=== PATIENT | male | born 1985 | race American Indian/Alaskan Native ===

== ENCOUNTER 2019-10-12 10:59 | Emergency (ER) | payer SELFPAY ==
--- NOTE | 2019-10-12 12:54 | Emergency Department Report ---
Blank Doc - Documentation Documentation: 34-year-old male that presents with URI symptoms. This initial assessment/diagnostic orders/clinical plan/treatment(s) is/are subject to change based on patient's health status, clinical progression and re- assessment by fellow clinical providers in the ED. Further treatment and workup at subsequent clinical providers discretion. Patient/guardians urged not to elope from the ED as their condition may be serious if not clinically assessed and managed. Initial orders include: 1- Patient sent to [facility] for further evaluation and treatment 2- cXR
--- NOTE | 2019-10-12 13:23 | XRay Report ---
CHEST 2 VIEWS INDICATION / CLINICAL INFORMATION: cough. COMPARISON: None available. FINDINGS: SUPPORT DEVICES: None. HEART / MEDIASTINUM: No significant abnormality. LUNGS / PLEURA: There is a focal parenchymal opacity in the anterolateral right upper lobe. The left lung is clear. No pneumothorax. ADDITIONAL FINDINGS: No significant additional findings. IMPRESSION: 1. Focal parenchymal opacity in the anterolateral right upper lobe most likely reflecting focal pneum onia. Signer Name: Jose G Mcdonald MD Signed: 10/12/2019 1:18 PM Workstation Name: [id number]
--- NOTE | 2019-10-12 18:20 | Emergency Department Report ---
Pediatric URI - HPI Chief Complaint: Upper Respiratory Infection Stated Complaint: FLU SYM Time Seen by Provider: 10/12/19 12:54 Duration: 3 Days Pain Location: Chest Severity: Moderate Symptoms: Yes Cough, Yes Able to Tolerate Fluids, Yes Good Urine Output, No Rhinorrhea, No Sore Throat, No Ear Pain, No Shortness of Breath, No Sick Contacts, No Listless Behavior Other History: This is a 34-year-old male who presents to the emergency room with cough and congestion for 3 days. Patient states he is taking [id number] cold and flu medication with minimal improvement of symptoms. Reports cough is productive. He denies numbness, headache, chest pain, palpitations, shortness of breath, or wheezing. ED Review of Systems ROS: Stated complaint: FLU SYM Other details as noted in HPI Constitutional: chills, fever ENT: congestion. denies: ear pain, throat pain Respiratory: cough. denies: shortness of breath, wheezing Cardiovascular: denies: chest pain, palpitations Gastrointestinal: denies: abdominal pain, nausea, diarrhea Musculoskeletal: denies: back pain, joint swelling, arthralgia Skin: denies: rash, lesions Neurological: denies: headache, weakness, paresthesias Psychiatric: denies: anxiety, depression ED Peds URI Exam - Exam General: Vital signs noted. No distress. Alert and acting appropriately. HEENT: Yes Moist Mucous Membranes, Yes Rhinorrhea (turbinates congested with clear discharge), No Pharyngeal Erythema, No Pharyngeal Exudates, No Conjuctival Injection, No Frontal Tenderness, No Maxillary Tenderness Ear: Neither TM Bulge, Neither TM Erythema, Neither EAC Pain, Neither EAC Discharge, Neither Cerumen Impaction Neck: No Adenopathy, No Supple Lungs: Yes Ronchi (right upper and middle lobes), No Good Air Exchange, No Wheezes, No Stridor, No Cough, No Labored Respirations, No Retractions, No Use of Accessory Muscles Heart: Yes Regular, No Murmur Abdomen: Yes Normal Bowel Sounds, No Tenderness, No Peritoneal Signs Skin: No Rash, No Eczema Neurologic: Alert and oriented, no deficits. Musculoskeletal: Unremarkable. ED Course Vital Signs 10/12/19 12:56 Temperature 98.9 F Pulse Rate 90 Respiratory 18 Rate Blood Pressure 102/66 O2 Sat by Pulse 98 Oximetry ED Medical Decision Making - Radiology Data Radiology results: report reviewed CHEST 2 VIEWS INDICATION / CLINICAL INFORMATION: cough. COMPARISON: None available. FINDINGS: SUPPORT DEVICES: None. HEART / MEDIASTINUM: No significant abnormality. LUNGS / PLEURA: There is a focal parenchymal opacity in the anterolateral right upper lobe. The left lung is clear. No pneumothorax. ADDITIONAL FINDINGS: No significant additional findings. IMPRESSION: 1. Focal parenchymal opacity in the anterolateral right upper lobe most likely reflecting focal pneumonia. - Medical Decision Making This is a 34 y.o. male that presents to the ER with cough and congestion for 3 days. Patient is stable and was examined by me. Chest xray has been obtained and dictated by radiologist. 1. Focal parenchymal opacity in the anterolateral right upper lobe most likely reflecting focal pneumonia. Vitals are stable inpatient in no acute distress. Patient does not seem toxic or ill in appearance. Start azithromycin standing, albuterol inhaler, and Tessalon Perles. Referral to PCP for continued care. Patient discharged home in stable condition. Return to work in 3 days. Critical care attestation.: If time is entered above; I have spent that time in minutes in the direct care of this critically ill patient, excluding procedure time. ED Disposition Clinical Impression: Cough in adult Pneumonia Qualifiers: Pneumonia type: due to unspecified organism Laterality: right Lung location: upper lobe of lung Qualified Code(s): J18.9 - Pneumonia, unspecified organism Disposition: DC- TO HOME OR SELFCARE Is pt being admited?: No Condition: Stable Instructions: Bacterial Pneumonia (ED) Additional Instructions: Complete full course of medication as prescribed. Follow up with [facility] in 48-72 hours. Increase fluids to prevent dehydration. Avoid smoking and rest. Prescriptions: Albuterol INH(or & Nicu Only) [ProAir HFA Inhaler] 2 puff IH QID PRN #8.5 gram PRN Reason: Shortness Of Breath Benzonatate [Tessalon Perles] 100 mg PO Q8HR PRN #30 capsule PRN Reason: Cough Azithromycin [Zithromax Z-MARCELO] 250 mg PO DAILY #6 tablet Referrals: [facility] [Outside] - 3-5 Days [facility] [Outside] - 3-5 Days [facility] [Outside] - 3-5 Days Forms: Work/School Release Form(ED) Time of Disposition: 18:23
[2019-10-12 19:19] VITALS: BP 102/63
== END 2019-10-12 19:15 | disposition home or self-care (01) ==
LOC: ED 10:59
DX: J18.9 Pneumonia, unspecified organism (principal)
CPT/HCPCS: 71046

== ENCOUNTER 2020-11-22 18:27 | Emergency (ER) | payer OTHER ==
[2020-11-22] MEDS ORDERED: IBUPROFEN 600 MG TAB PO ONE (19:36)
[2020-11-22 19:39] VITALS: BP 106/76
--- NOTE | 2020-11-22 20:07 | XRay Report ---
LEFT SHOULDER 3 VIEWS INDICATION / CLINICAL INFORMATION: Pain - Injury. COMPARISON: None available. FINDINGS: No fracture, dislocation or other significant abnormality. Signer Name: Lance Moss MD Signed: 11/22/2020 8:03 PM Workstation Name: [id number]
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
== END 2020-11-22 20:55 | disposition home or self-care (01) ==
LOC: ED 18:27
DX: S46.912A Strain of unspecified muscle, fascia and tendon at shoulder and upper arm level, left arm, initial encounter (principal); Z79.899 Other long term (current) drug therapy; V49.49XA Driver injured in collision with other motor vehicles in traffic accident, initial encounter; Y92.410 Unspecified street and highway as the place of occurrence of the external cause; Y93.89 Activity, other specified; Y99.8 Other external cause status

== ENCOUNTER 2021-03-21 08:30 | Emergency (ER) | payer SELFPAY ==
--- NOTE | 2021-03-21 09:42 | Emergency Department Report ---
ED General Adult HPI - General Chief complaint: Dental/Oral Stated complaint: DENTAL PAIN Time Seen by Provider: 03/21/21 09:36 Source: patient Mode of arrival: Ambulatory Limitations: No Limitations - History of Present Illness Initial comments: 36-year-old immunocompetent male patient presents to the emergency department with complaints of left upper dental pain starting 3 days ago. Patient is not currently under the care of a dentist. He took aspirin and Goody powder yesterday with limited relief. He is not currently on antibiotics. Denies fev er, chills, dysphagia, shortness of breath, hoarseness, purulent drainage. Denies all other complaints at this time. Severity scale (0 -10): 10 - Related Data Previous Rx's Medication Instructions Recorded Last Taken Type Albuterol Mdi (or & Nicu Only) 2 puff IH QID PRN #8.5 gram 10/12/19 Unknown Rx [ProAir HFA Inhaler] Azithromycin [Zithromax Z-MARCELO] 250 mg PO DAILY #6 tablet 10/12/19 Unknown Rx Benzonatate [Tessalon Perles] 100 mg PO Q8HR PRN #30 capsule 10/12/19 Unknown Rx Ibuprofen [Motrin] 600 mg PO Q8H PRN #30 tablet 11/22/20 Unknown Rx Naproxen 500 mg PO BID #20 tablet 03/21/21 Unknown Rx Penicillin Vk [Veetids TAB] 500 mg PO QID 7 Days tablet 03/21/21 Unknown Rx Allergies Allergy/AdvReac Type Severity Reaction Status Date / Time No Known Allergies Allergy Verified 11/22/20 19:38 ED Review of Systems ROS: Stated complaint: DENTAL PAIN Other details as noted in HPI Other: GENERAL: Negative for fever, chills, weight change, anorexia, fatigue. ENT: Positive for dental pain. CARDIOVASCULAR: Negative for chest pain, palpitations, lower extremity swelling. PULMONARY: Negative for cough, dyspnea, wheezing, orthopnea, cyanosis. GASTROINTESTINAL: Negative for abdominal pain, nausea, vomiting, diarrhea, constipation. MUSCULOSKELETAL: Negative for joint pain, joint swelling, myalgias, back pain, neck pain. NEUROLOGICAL: Negative for headache, seizure, syncope, paresthesias, weakness. INTEGUMENTARY: Negative for erythema, rash, diaphoresis, laceration, ecchymosis. HEMATOLOGICAL: Negative for hemoptysis, hematemesis, hematochezia, hematuria. PSYCHIATRIC: Negative for hallucinations, suicidal ideation, homicidal ideation, anxiety, depression. ED Past Medical Hx - Past Medical History Previous Medical History?: No - Surgical History Past Surgical History?: No - Social History Smoking Status: Never Smoker Substance Use Type: None - Medications Home Medications: Home Medications Medication Instructions Recorded Confirmed Last Taken Type Albuterol Mdi (or & Nicu Only) 2 puff IH QID PRN #8.5 gram 10/12/19 Unknown Rx [ProAir HFA Inhaler] Azithromycin [Zithromax Z-MARCELO] 250 mg PO DAILY #6 tablet 10/12/19 Unknown Rx Benzonatate [Tessalon Perles] 100 mg PO Q8HR PRN #30 capsule 10/12/19 Unknown Rx Ibuprofen [Motrin] 600 mg PO Q8H PRN #30 tablet 11/22/20 Unknown Rx Naproxen 500 mg PO BID #20 tablet 03/21/21 Unknown Rx Penicillin Vk [Veetids TAB] 500 mg PO QID 7 Days tablet 03/21/21 Unknown Rx ED Physical Exam - General Limitations: No Limitations - Other Other exam information: General: Awake, appropriately interactive, no acute distress. Dental: Oral mucosa is moist. Diffusely poor dentition with multiple teeth decayed to the gumline. The gingiva appear normal. No fluctuance or evidence of periapical abscess. Sublingual, submental, and submandibular spaces all soft, without edema. No evidence for maxillary or buccal space abscess. No trismus. Patient is speaking in full sentences and handling secretions without difficulty. Neck: Supple. Full range of motion intact. Cardiovascular: Normal peripheral perfusion. Pulmonary: No respiratory distress. Patient is speaking normally without use of accessory muscles. Skin: No apparent rashes or lesions. Neurological: No facial asymmetry. Speech is clear. Follows commands. Patient is alert and oriented. Musculoskeletal: Moves all four extremities spontaneously with normal range of motion. Psych: Cooperative. Appropriate mood and affect. ED Course Vital Signs 03/21/21 03/21/21 08:44 10:15 Temperature 98.7 F Pulse Rate 89 70 Respiratory 18 Rate Blood Pressure 102/67 105/88 [Right] O2 Sat by Pulse 99 Oximetry ED Medical Decision Making - Medical Decision Making Differential diagnosis including but not limited to: dental abscess, Waylon's angina, necrotizing gingivitis, dental caries Patient presents to the emergency department with complaints of dental pain. He is afebrile, hemodynamically stable, no hypoxia, no respiratory distress. He is speaking and handling his secretions without difficulty. No clinical evidence to suggest airway obstruction or systemic bacterial infection. Patient will be discharged home with antibiotics, appropriate analgesics, and referral to dentist for close outpatient follow-up. Patient expressed understanding and is agreeable to plan of care. Strict return precautions provided. Repeat exam is unremarkable and benign. History, exam, diagnostic testing, and current condition do not suggest worrisome pathology to warrant further testing, continued ED treatment, admission, or surgical evaluation at this point. Given the low probability of a significant medical illness, it would be more likely to result in harm than benefit to perform further testing at this stage. Discussed findings, presumptive diagnosis, need for follow-up and specific signs/symptoms that should prompt immediate return to the emergency department. Instructions were explained in detail to the patient in addition to giving written discharge information. Patient expressed understanding and was given the opportunity to ask questions, all of which were satisfactorily answered prior to discharge home. Critical care attestation.: If time is entered above; I have spent that time in minutes in the direct care of this critically ill patient, excluding procedure time. ED Disposition Clinical Impression: Odontalgia Disposition: DC- TO HOME OR SELFCARE Is pt being admited?: No Does the pt Need Aspirin: No Condition: Stable Instructions: Diet and Dental Disease Additional Instructions: Take Tylenol every 4 hours as needed for pain. Take Naprosyn twice daily with food as needed for pain. Take Penicillin with food as directed. You must follow-up with a dentist. Call today to schedule an appointment. See referral information below. Return to the emergency department immediately for new or worsening symptoms. Prescriptions: Naproxen 500 mg PO BID #20 tablet Penicillin Vk [Veetids TAB] 500 mg PO QID 7 Days tablet Referrals: [facility] [Outside] - 3-5 Days [facility] [Outside] - 3-5 Days Time of Disposition: 09:42
[2021-03-21 10:16] VITALS: BP 105/88
== END 2021-03-21 10:15 | disposition home or self-care (01) ==
LOC: ED 08:30
DX: K08.89 Other specified disorders of teeth and supporting structures (principal); Z79.899 Other long term (current) drug therapy
CPT/HCPCS: 99282